=== PATIENT | male | born 1960 | race Caucasian/White ===

== ENCOUNTER → 2017-02-20 | Outpatient (CLI) | payer BC | END | disposition home or self-care (01) | LOC: C.LABSPEC 15:04 → C.PATHSPEC 15:05 | DX: D21.12 Benign neoplasm of connective and other soft tissue of left upper limb, including shoulder (principal); L83 Acanthosis nigricans; L85.8 Other specified epidermal thickening; L11.9 Acantholytic disorder, unspecified ==